=== PATIENT | male | born 2000 | race Caucasian/White ===

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

== ENCOUNTER 2023-01-09 16:00 | Emergency (ER) | payer BC, SELFPAY ==
[2023-01-09] MEDS ORDERED: Proparacaine 0.5% Opth 15 ML BOT ONE (17:30)
[2023-01-09] MEDS ORDERED: Fluorescein Opthalmic Strip ONE (17:30)
== END 2023-01-09 19:14 | disposition home or self-care (01) ==
LOC: ERS 16:00
DX: Z77.098 Contact with and (suspected) exposure to other hazardous, chiefly nonmedicinal, chemicals (principal)
CPT/HCPCS: 99283